=== PATIENT | female | born 1980 | race Hispanic/Latino ===

== ENCOUNTER 2017-03-08 14:36 | Emergency (ER) | payer OTHER ==
[2017-03-08 14:46] VITALS: TEMP 99
[2017-03-08] MEDS ORDERED: Sodium Chloride 0.9% 1,000 ML IV STA (15:23)
--- NOTE | 2017-03-08 15:37 | ED PDOC ---
HPI: Seizure Time Seen by Provider: 03/08/17 15:03 Chief Complaint (Nursing): Seizure Chief Complaint (Provider): Seizure History Per: Patient History/Exam Limitations: no limitations Recent Seizure Activity Began: Just Before Arrival Number Of Seizures: One Length Of Seizures (Duration): Minutes (1 minute) Precipitating Factor(s): Decreased Sleep. denies: Recent Head Trauma Associated Symptoms: denies: Bit Tongue, Incontinence Of Urine Additional Complaint(s): Rody Delatorre, a 36 year old female, with a past medical history of epilepsy presents to the ED post seizure. The patient reports that she had one seizure at home prior to arrival. She reports that the seizure was witnessed by her roommate who states that it lasted for about one minute and she recovered immediately. She states that she has not been sleeping well or the past 2 day and that may have caused seizure. On arrival to ED patient is completely awake, alert and oriented and a good historian. denies any medical complaints, headache , weakness, numbness. The patient reports that during the seizure there was no head injury, tongue biting or incontinence. Patient states that he last seizure was many years ago and she also had a MRI of the brain done last week which was completely normal. Neurologist: MARIYA Of note: Patient takes lamictal and keppra daily and states thats he is compliant with her medication. Past Medical History Reviewed: Historical Data, Nursing Documentation, Vital Signs Vital Signs: Last Vital Signs Temp 99 F 03/08/17 14:41 Pulse 120 H 03/08/17 14:41 Resp 18 03/08/17 14:41 BP 138/96 H 03/08/17 14:41 Pulse Ox 99 03/08/17 17:12 - Medical History Other PMH: Epilesy, Chronic Urticaria - Surgical History Surgical History: No Surg Hx - Family History Family History: States: Unknown Family Hx - Social History Current smoker - smoking cessation education provided: No Ex-Smoker (has not smoked in the last 12 months): No Alcohol: None - Allergies Allergies/Adverse Reactions: Allergies Allergy/AdvReac Type Severity Reaction Status Date / Time cefaclor [From Ceclor] Allergy RASH Verified 03/08/17 14:40 zonisamide [From Zonegran] Allergy RASH Verified 03/08/17 14:41 Review of Systems Neurological: Positive for: Other (seizure x1 ) Physical Exam - Reviewed Nursing Documentation Reviewed: Yes Vital Signs Reviewed: Yes - Physical Exam Appears: Positive for: Non-toxic, No Acute Distress Head Exam: Positive for: ATRAUMATIC, NORMAL INSPECTION, NORMOCEPHALIC Skin: Positive for: Normal Color, Warm, Dry, Rash (faint urticarial rash) Eye Exam: Positive for: Normal appearance, EOMI, PERRL. Negative for: Nystagmus ENT: Positive for: Normal ENT Inspection. Negative for: Nasal Congestion, Tonsillar Exudate, Tonsillar Swelling Neck: Positive for: Normal, Painless ROM, Supple Cardiovascular/Chest: Positive for: Regular Rate, Rhythm, Chest Non Tender. Negative for: Bradycardia, Tachycardia Respiratory: Positive for: Normal Breath Sounds. Negative for: Rales, Rhonchi, Wheezing, Respiratory Distress Gastrointestinal/Abdominal: Positive for: Normal Exam, Bowel Sounds, Soft. Negative for: Tenderness, Mass, Guarding, Rebound Back: Positive for: Normal Inspection. Negative for: L CVA Tenderness, R CVA Tenderness Extremity: Positive for: Normal ROM. Negative for: Tenderness, Deformity, Swelling Neurologic/Psych: Positive for: Alert, Oriented, Gait. Negative for: Motor/ Sensory Deficits, Aphasia, Facial Droop - Laboratory Results Result Diagrams: 03/08/17 15:24 03/08/17 16:54 - ECG O2 Sat by Pulse Oximetry: 99 (RA) Pulse Ox Interpretation: Normal Medical Decision Making Medical Decision Makin Initial Impression 36 year old female presenting with recurrent seizure Initial Plan: * EKG * CMP * Magnsium * Upreg * Udip * CBC * NS 1000ml IV 1000mls/hr * Reevaluation Scribe Attestation Documented by Samanta Carias acting as a scribe for Francisco Xavier MD. Provider Attestation All medical record entries made by the Scribe were at my direction and personally dictated by me. I have reviewed the chart and agree that the record accurately reflects my personal performance of the history, physical exam, medical decision making, and the department course for this patient. I have also personally directed, reviewed, and agree with the discharge Disposition - Clinical Impression Clinical Impression: Seizure disorder, Recurrent seizures - Patient ED Disposition Is Patient to be Admitted: No Doctor Will See Patient In The: Office Counseled Patient/Family Regarding: Studies Performed, Diagnosis, Need For Followup - Disposition Referrals: Your , Neurologist [Other] Disposition: Routine/Home Disposition Time: 17:11 Condition: GOOD Additional Instructions: Take your medications as instructed. Follow up with your neurologist in 2-3 days. Instructions: Recurrent Seizures in Adults (ED)
[2017-03-08 16:02] LABS: HEMATOCRIT 41.7 % (34.0-47.0); LYMPH % 28.2 % (20.0-40.0); MEAN CELL VOLUME 88.9 fl (81.0-99.0); MEAN CORPUSCULAR HEMOGLOBIN 29.3 pg (27.0-31.0); MEAN CORPUSCULAR HGB CONC 32.9 g/dL (33.0-37.0); MEAN PLATELET VOLUME 10.3 fl (7.2-11.7); MONO # 0.6 K/uL (0.0-0.8); MONO % 5.1 % (0.0-10.0); NEUT # 7.2 K/uL (1.8-7.0); NEUT % 66.7 % (50.0-75.0); RED CELL DISTRIBUTION WIDTH 13.5 % (11.5-14.5); WHITE BLOOD COUNT 10.8 K/uL (4.8-10.8)
[2017-03-08 17:03] LABS: ALB/GLOB RATIO 1.5 (1.0-2.1); ALKALINE PHOSPHATASE 52 U/L (38-126); ALT/SGPT 24 U/L (9-52); AST/SGOT 20 U/L (14-36); BILIRUBIN,TOTAL 0.5 mg/dl (0.2-1.3); BLOOD UREA NITROGEN 18 mg/dl (7-17); CALCIUM 9.1 mg/dL (8.4-10.2); CARBON DIOXIDE 26 mmol/L (22-30); CHLORIDE 102 mmol/L (98-107); GFR AFRICAN-AMERICAN > 60; GLUCOSE,RANDOM 89 mg/dL (65-105); MAGNESIUM 1.8 MG/DL (1.6-2.3); POTASSIUM 3.5 MMOL/L (3.6-5.0); SODIUM 140 mmol/l (132-148); TOTAL PROTEIN 6.2 G/DL (6.3-8.2)
[2017-03-08 17:33] VITALS: BP 129/74; PULSE 76; RESP 16; O2SAT 98
== END 2017-03-08 17:33 | disposition home or self-care (01) ==
LOC: H.ER 14:36
DX: G40.909 Epilepsy, unspecified, not intractable, without status epilepticus (principal)
CPT/HCPCS: 80053; 81025; 83735; 85025; 99284; J7040